=== PATIENT | female | born 1975 | race Caucasian/White ===

== ENCOUNTER 2017-03-03 08:27 | Emergency (ER) | payer BC, MEDICAID ==
[~2017-03-03] VITALS: Wt 72.0 kg
[2017-03-03] MEDS ORDERED: HYDROCODONE/APAP (5/325) TAB PO ONE (09:00)
--- NOTE | 2017-03-03 09:09 | ERD ---
ER Documentation Chief Complaint Date/Time DATE: 03/03/17 TIME: 09:07 Chief Complaint R SIDE ABD PAIN WITH NO N/V. NO DIARRHEA NO DYSURIA . ONSET FOR 2 DAYS. HPI This 41-year-old female presents emergency department today complaining of right -sided abdominal pain for the past 2 days but worse today. 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 States that one day prior to that she had some back pain. States has a history of hernia repair and gallbladder removal. Denies any fevers or chills, dysuria, nausea or vomiting. ROS All systems reviewed and are negative except as per history of present illness. Medications Home Meds Active Scripts Naproxen* (Naprosyn*) 500 Mg Tablet, 500 MG PO BID Y for PAIN AND/OR INFLAMMATION, #30 TAB Prov:ELIECER BELTRAN PA-C 03/03/17 Hydrocodone/Acetaminophen ([place] 5-325 Tablet) 1 Each Tablet, 1 TAB PO Q6H Y for PAIN, #12 TAB Prov:ELIECER BELTRAN PA-C 03/03/17 Cephalexin* (Keflex*) 500 Mg Capsule, 500 MG PO QID for 7 Days, CAP Prov:ELIECER BELTRAN PA-C 03/03/17 Allergies Allergies: Coded Allergies: No Known Allergy (Unverified , 12/22/15) PMhx/Soc Medical and Surgical Hx: pt denies Medical Hx History of Surgery: Yes (CHOLECYSTECTOMY, C SECTION X1) Anesthesia Reaction: Yes (HARD TO WAKE UP) Hx Neurological Disorder: No Hx Respiratory Disorders: No Hx Cardiac Disorders: No Hx Psychiatric Problems: No Hx Miscellaneous Medical Probl: No Hx Alcohol Use: No Hx Substance Use: No Hx Tobacco Use: No Smoking Status: Never smoker Physical Exam Vitals Vital Signs Date Time Temp Pulse Resp B/P Pulse Ox O2 Delivery O2 Flow Rate FiO2 03/03/17 08:31 97.9 62 20 111/70 98 Physical Exam Const: Obese, no acute distress Head: Atraumatic Eyes: Normal Conjunctiva ENT: Normal External Ears, Nose and Mouth. Neck: Full range of motion..~ No meningismus. Resp: Clear to auscultation bilaterally Cardio: Regular rate and rhythm, no murmurs Abd: Soft, right upper quadrant tenderness and mild epigastric tenderness, non distended. Normal bowel sounds. No tenderness McBurney's. Skin: No petechiae or rashes Back: No midline or flank tenderness. No CVA tenderness Ext: No cyanosis, or edema Neur: Awake and alert Psych: Normal Mood and Affect Result Diagram: 03/03/17 0908 03/03/17 0908 Results 24 hrs Laboratory Tests Test 03/03/17 09:05 03/03/17 09:08 Urine Color YELLOW Urine Clarity SLIGHTLY CLOUDY Urine pH 6.0 Urine Specific [place] 1.017 Urine Ketones NEGATIVEmg/dL Urine Nitrite NEGATIVEmg/dL Urine Bilirubin NEGATIVEmg/dL Urine Urobilinogen NEGATIVEmg/dL Urine Leukocyte Esterase 3+Alicja/ul Urine Microscopic RBC 1/HPF Urine Microscopic WBC 7/HPF Urine Squamous Epithelial Cells FEW/HPF Urine Bacteria FEW/HPF Urine Hemoglobin NEGATIVEmg/dL Urine Glucose NEGATIVEmg/dL Urine Total Protein NEGATIVEmg/dl White Blood Count 7.310^3/ul Red Blood Count 3.6510^6/ul Hemoglobin 11.9g/dl Hematocrit 33.4% Mean Corpuscular Volume 91.5fl Mean Corpuscular Hemoglobin 32.6pg Mean Corpuscular Hemoglobin Concent 35.6g/dl Red Cell Distribution Width 11.9% Platelet Count 50855^3/UL Mean Platelet Volume 9.5fl Neutrophils % 49.9% Lymphocytes % 39.8% Monocytes % 6.3% Eosinophils % 2.6% Basophils % 0.7% Nucleated Red Blood Cells % 0.0/100WBC Neutrophils # 3.710^3/ul Lymphocytes # 2.910^3/ul Monocytes # 0.510^3/ul Eosinophils # 0.210^3/ul Basophils # 0.110^3/ul Nucleated Red Blood Cells # 0.010^3/ul Sodium Level 144mmol/L Potassium Level 3.6mmol/L Chloride Level 102mmol/L Carbon Dioxide Level 28mmol/L Anion Gap 18 Blood Urea Nitrogen 11mg/dl Creatinine 0.63mg/dl Glucose Level 92mg/dl Calcium Level 9.0mg/dl Total Bilirubin 0.1mg/dl Direct Bilirubin 0.00mg/dl Indirect Bilirubin 0.1mg/dl Aspartate Amino Transf (AST/SGOT) 55IU/L Alanine Aminotransferase (ALT/SGPT) 140IU/L Alkaline Phosphatase 171IU/L Total Protein 8.2g/dl Albumin 4.3g/dl Globulin 3.90g/dl Albumin/Globulin Ratio 1.10 Lipase 117U/L Current Medications Medications (Trade) Dose Ordered Sig/Luis Route PRN Reason Start Time Stop Time Status Last Admin Dose Admin Acetaminophen/ Hydrocodone Bitart ([place] (5/325)) 1 tab ONCE ONCE PO 03/03/17 09:00 03/03/17 09:01 DC 03/03/17 09:18 DIAGNOSTIC IMAGING REPORT Patient: PATRICE JACOBS : 1975 Age: 41 Sex: F MR #: [id number] DOS: 03/03/17 0000 Ordering MD: ELIECER BELTRAN PA-C Location: [facility] Room/Bed: PROCEDURE: US Abdomen (Right upper quadrant) CLINICAL INDICATION: Abdominal pain. TECHNIQUE: Multiple real-time longitudinal and transverse images were acquired of the patient's right upper quadrant utilizing a curved array transducer. COMPARISON: None. FINDINGS: Liver demonstrates diffuse increase in parenchymal echogenicity. No focal liver mass. Portal vein demonstrates hepatopetal flow. Gallbladder is surgically absent. There is no gallbladder wall thickening or pericholecystic fluid. No intra- or extrahepatic biliary dilation. Pancreas is partially visualized and grossly unremarkable. Right kidney demonstrates no hydronephrosis or nephrolithiasis. No ascites. Proximal aorta and IVC are unremarkable. MEASUREMENTS: Liver: 18.7 cm Common Duct: 0.4 cm Right Kidney: 13.1 cm IMPRESSION: Hepatic steatosis and mild hepatomegaly. Surgical absence of the gallbladder without biliary dilatation. RPTAT: EE .Agus Chisholm MD, MD Date Time Electronically viewed and signed by .Agus Chisholm MD, on 03/03/2017 09:51 .C/ CC: ELIECER BELTRAN PA-C Procedures/MDM This 41-year-old female presents emergency department today complaining of right -sided abdominal pain for the past 2 days and prior to that one day of back pain. Patient is afebrile and otherwise well-appearing and she has had a history of gallbladder removal of her given patient's location of pain I did obtain laboratory work as well as an ultrasound Laboratory workup shows shows no elevated white blood cell count. Her hemoglobin is very mildly decreased. Platelets are slightly elevated. Electrolytes are within normal limits. Glucose within normal limits. Bilirubin is within normal limits. Liver enzymes are mildly elevated. Lipase is within normal limits. UA shows 3+ leukocyte esterase negative nitrites. There 7 microscopic white blood cells. test is negative Abdomen ultrasound limited shows hepatic steatosis and mild hepatomegaly. There is surgical absence of the gallbladder without biliary dilatation. Patient symptoms at this time is consistent with abdominal pain of uncertain etiology however may be related to urinary tract infection as well. Patient does have a history of ventral hernia and she stated that she had some back pain and abdominal pain with moving heavy objects however however given the location of her pain in the right upper quadrant I have low suspicion for incarcerated hernia or bowel obstruction. Low suspicion for acute surgical abdomen. Patient has no tenderness Mauricio's peer Patient was given Marceline here in the emergency department and pain improved. She indicated that she did not need more pain medication and she was sitting up on her phone. At this time the patient is stable for discharge and outpatient management. Patient should follow up with their PCP in the next 1-2 days. They may return to the emergency department sooner for any persistent or worsening of symptoms. Patient understood and agreed with the plan. Departure Diagnosis: Primary Impression: Abdominal pain Abdominal location: right upper quadrant Qualified Code: R10.11 - Right upper quadrant abdominal pain Additional Impression: UTI (urinary tract infection) Urinary tract infection type: site unspecified Hematuria presence: without hematuria Qualified Code: N39.0 - Urinary tract infection without hematuria, site unspecified Condition: ELIECER Cho PA-C Mar 03, 2017 09:09
[2017-03-03 09:30] LABS: BASOPHIL # 0.1 10^3/ul (0.0-0.1); BASOPHILS % 0.7 % (0.0-2.0); EOSINOPHILS # 0.2 10^3/ul (0.0-0.5); EOSINOPHILS % 2.6 % (0.0-7.0); HEMATOCRIT 33.4 % (37.0-47.0); HEMOGLOBIN 11.9 g/dl (12.0-16.0); LYMPHOCYTES # 2.9 10^3/ul (0.8-2.9); LYMPHOCYTES % 39.8 % (15.0-51.0); MEAN CORPUSCULAR HEMOGLOBIN 32.6 pg (29.0-33.0); MEAN CORPUSCULAR HGB CONC 35.6 g/dl (32.0-37.0); MEAN CORPUSCULAR VOLUME 91.5 fl (82.0-101.0); MEAN PLATELET VOLUME 9.5 fl (7.4-10.4); MONOCYTE # 0.5 10^3/ul (0.3-0.9); MONOCYTES % 6.3 % (0.0-11.0); NEUTROPHIL # 3.7 10^3/ul (1.6-7.5); NEUTROPHILS % 49.9 % (39.0-77.0); PLATELET COUNT 424 10^3/UL (140-415); RED BLOOD COUNT 3.65 10^6/ul (4.20-5.40); RED CELL DISTRIBUTION WIDTH 11.9 % (11.5-14.5); WHITE BLOOD COUNT 7.3 10^3/ul (4.8-10.8)
[2017-03-03 09:38] LABS: ADD UMIC YES; UR ASCORBIC ACID NEGATIVE (NEGATIVE); UR BACTERIA FEW /HPF (NONE SEEN); UR BILIRUBIN (Dip) NEGATIVE (NEGATIVE); UR BLOOD (Dip) NEGATIVE (NEGATIVE); UR CLARITY SLIGHTLY CLOUDY (CLEAR); UR COLOR YELLOW (YELLOW); UR GLUCOSE (Dip) NEGATIVE (NEGATIVE); UR KETONES (Dip) NEGATIVE (NEGATIVE); UR LEUKOCYTE ESTERASE (Dip) 3+ Leu/ul (NEGATIVE); UR NITRITE (Dip) NEGATIVE (NEGATIVE); UR RBC 1 /HPF (0-5); UR SPECIFIC GRAVITY (Dip) 1.017 (1.003-1.030); UR SQUAMOUS EPITHELIAL CELL FEW /HPF (FEW); UR TOTAL PROTEIN (Dip) NEGATIVE (NEGATIVE); UR UROBILINOGEN (Dip) NEGATIVE (NEGATIVE)
--- NOTE | 2017-03-03 09:46 | RADRPT ---
PROCEDURE: US Abdomen (Right upper quadrant) CLINICAL INDICATION: Abdominal pain. TECHNIQUE: Multiple real-time longitudinal and transverse images were acquired of the patient's ri ght upper quadrant utilizing a curved array transducer. COMPARISON: None. FINDINGS: Liver demonstrates diffuse increase in parenchymal echogenicity. No focal liver mass. Portal vein demonstrates hepatopetal flow. Gallbladder is surgically absent. There is no gallbladder wall thickening or pericholecystic fluid. No intra- or extrahepatic biliary dilation. Pancreas is partially visualized and grossly unremarkable. Right kidney demonstrates no hydronephrosis or nephrolithiasis. No ascites. Proximal aorta and IVC are unremarkable. MEASUREMENTS: Liver: 18.7 cm Common Duct: 0.4 cm Right Kidney: 13.1 cm IMPRESSION: Hepatic steatosis and mild hepatomegaly. Surgical absence of the gallbladder without biliary dilatation. RPTAT: EE .Agus Chisholm MD, MD Date Time Electronically viewed and signed by .Agus Chisholm MD, on 03/03/2017 09:51 .C/
[2017-03-03 09:51] LABS: ALBUMIN 4.3 g/dl (3.3-4.9); ALBUMIN/GLOBULIN RATIO 1.1; BILIRUBIN,INDIRECT 0.1 mg/dl (0-1.1); BILIRUBIN,TOTAL 0.1 mg/dl (0.2-1.3); CREATININE 0.63 mg/dl (0.44-1.00); POTASSIUM 3.6 mmol/L (3.5-5.1); TOTAL PROTEIN 8.2 g/dl (6.1-8.1)
[2017-03-03] MEDS ORDERED: CEPH-443 PO (10:02)
[2017-03-03] MEDS ORDERED: NAPR-260 PO (10:03)
[2017-03-03] MEDS ORDERED: HYDR-906 PO (10:03)
== END 2017-03-03 10:12 | disposition home or self-care (01) ==
LOC: FTE 08:27
DX: R10.11 Right upper quadrant pain (principal); N39.0 Urinary tract infection, site not specified
CPT/HCPCS: 36415; 76705; 80053; 81001; 83690; 85025; Z7502; Z7610

== ENCOUNTER 2017-03-26 07:51 | Emergency (ER) | payer OTHER ==
[~2017-03-26] VITALS: Wt 80.0 kg
[~2017-03-26 07:51] MED LIST: CEPH-443 PO; HYDR-906 PO; NAPR-260 PO
[2017-03-26] MEDS ORDERED: IBUPROFEN 600 MG TAB PO ONE (08:30)
--- NOTE | 2017-03-26 08:46 | ERD ---
ER Documentation Chief Complaint Date/Time DATE: 03/26/17 TIME: 08:43 Chief Complaint FEVER AND SORE THROAT FOR THE PAST 2 DAYS. GENERAL BODY PAIN. HPI This is a 41-year-old female presenting to emergency department with sore throat , fever and generalized body aches 3 days. Patient states temp of 10 1F at home and has been taking Tylenol. Patient has painful swallowing however no difficulty swallowing or drooling. No cough, shortness breath or difficulty breathing. No chest pain or heart palpitations. No earache or headache. No sick contacts. ROS All systems reviewed and are negative except as per history of present illness. Medications Home Meds Active Scripts Acetaminophen* (Tylenol*) 325 Mg Tablet, 1 TAB PO Q6 Y for PAIN AND OR ELEVATED TEMP, #20 TAB Prov:CELIA CH NP 03/26/17 Ibuprofen* (Motrin*) 400 Mg Tab, 400 MG PO Q6, #30 TAB Prov:CELIA CH NP 03/26/17 Amoxicillin* (Amoxicillin*) 500 Mg Cap, 500 MG PO BID for 10 Days, CAP Prov:CELIA CH NP 03/26/17 Naproxen* (Naprosyn*) 500 Mg Tablet, 500 MG PO BID Y for PAIN AND/OR INFLAMMATION, #30 TAB Prov:ELIECER BELTRAN PA-C 03/03/17 Hydrocodone/Acetaminophen ([place] 5-325 Tablet) 1 Each Tablet, 1 TAB PO Q6H Y for PAIN, #12 TAB Prov:ELIECER BELTRAN PA-C 03/03/17 Cephalexin* (Keflex*) 500 Mg Capsule, 500 MG PO QID for 7 Days, CAP Prov:ELIECER BELTRAN PA-C 03/03/17 Allergies Allergies: Coded Allergies: No Known Allergy (Unverified , 12/22/15) PMhx/Soc Medical and Surgical Hx: pt denies Medical Hx, pt denies Surgical Hx History of Surgery: Yes (CHOLECYSTECTOMY, C SECTION X1) Anesthesia Reaction: Yes (HARD TO WAKE UP) Hx Neurological Disorder: No Hx Respiratory Disorders: No Hx Cardiac Disorders: No Hx Psychiatric Problems: No Hx Miscellaneous Medical Probl: No Hx Alcohol Use: No Hx Substance Use: No Hx Tobacco Use: No Smoking Status: Never smoker Physical Exam Vitals Vital Signs Date Time Temp Pulse Resp B/P Pulse Ox O2 Delivery O2 Flow Rate FiO2 03/26/17 07:54 101.5 85 18 112/63 98 Physical Exam Const: No acute distress, alert Head: Atraumatic Eyes: Normal Conjunctiva ENT: Normal External Ears, Nose and Mouth. erythema and exudate to posterior pharynx. no peritonsillar abscess. non kissing tonsils. Neck: Full range of motion..~ No meningismus. Resp: Clear to auscultation bilaterally. No wheezing, rhonchi or crackles. Cardio: Regular rate and rhythm, no murmurs Abd: Soft, non tender, non distended. Normal bowel sounds Skin: No petechiae or rashes Back: No midline or flank tenderness Ext: No cyanosis, or edema Neur: Awake and alert Psych: Normal Mood and Affect Results 24 hrs Current Medications Medications (Trade) Dose Ordered Sig/Luis Route PRN Reason Start Time Stop Time Status Last Admin Dose Admin Ibuprofen (Motrin) 600 mg ONCE ONCE PO 03/26/17 08:30 03/26/17 08:31 DC 03/26/17 08:20 Procedures/MDM MDM: This is a 41-year-old female presenting to emergency department with sore throat, fever and generalized body aches 3 days. Patient has temperature of 101.5F upon arrival to ED and heart rate 85 bpm. On physical exam there is erythema and exudate posterior pharynx. No peritonsillar abscess. Non-kissing tonsils. Patient given ibuprofen 600 mg while in the ED. Rapid strep swab collected.No signs or symptoms of respiratory distress. Oxygen saturation 98% on room air. Strep swab is positive. Differential diagnosis includes but not limited to strep pharyngitis, pneumonia , viral pharyngitis, influenza, coxsackievirus, herpes simplex virus, [place]- [place] virus, Respiratory syncytial virus and otitis media. Patient likely has viral pharyngitis. Patient is appropriate for outpatient management and will be discharged with prescription for Motrin, Tylenol and Amoxicillin. Instructed patient to follow up with primary care provider in the next 2-3 days for reassessment. Return to ED for any high fever, chest pain, difficulty breathing, shortness breath, wheezing, vomiting, diarrhea, abdominal pain or any new or worsening symptoms. Patient verbalizes understanding. All questions answered at discharge. Departure Diagnosis: Primary Impression: Strep pharyngitis Condition: Stable CELIA CH NP Mar 26, 2017 08:46
[2017-03-26] MEDS ORDERED: AMO500 PO (09:23)
[2017-03-26] MEDS ORDERED: ACET325T33 PO (09:23)
[2017-03-26] MEDS ORDERED: IBUP400T22 PO (09:23)
== END 2017-03-26 09:30 | disposition home or self-care (01) ==
LOC: FTE 07:51
DX: J02.0 Streptococcal pharyngitis (principal)
CPT/HCPCS: 87880; 99283

== ENCOUNTER 2019-03-14 08:39 | Emergency (ER) | payer OTHER ==
[~2019-03-14] VITALS: Ht 162.6 cm; Wt 86.7 kg
[~2019-03-14 08:39] MED LIST changes: +ACET325T33 PO; +AMOX500C2 PO; +HYDR-4011 PO; -HYDR-906 PO; +IBUP-1561 PO; -NAPR-260 PO; +NAPR-985 PO; +OMEP20CA16 PO
[2019-03-14 08:45] VITALS: Ht 162.6 cm; Wt 86.7 kg
--- NOTE | 2019-03-14 09:57 | ERD ---
ER Documentation Chief Complaint Chief Complaint PALPITATIONS X2 DAYS, NO CHEST PAIN/SOB HPI 43-year-old female who presents to the emergency room with approximately 1 week of symptoms of intermittent palpitations. She states that she feels her heart is racing and she feels a knot in the back of her throat. Patient denies any chest pain or pressure, no exertional symptoms. The symptoms come and go lasting several minutes at a time. She denies any lightheadedness, pleuritic discomfort or near syncope. ROS All systems reviewed and are negative except as per history of present illness. Medications Home Meds Active Scripts Omeprazole* (Omeprazole*) 20 Mg Capsule., 20 MG PO DAILY for 30 Days Prov:CHEYENNE BRUNER MD 03/14/19 Discontinued Scripts Acetaminophen* (Tylenol*) 325 Mg Tablet, 1 TAB PO Q6 PRN for PAIN AND OR ELEVATED TEMP, #20 TAB Prov:CELIA CH NP 03/26/17 Ibuprofen* (Motrin*) 400 Mg Tab, 400 MG PO Q6, #30 TAB Prov:CELIA CH NP 03/26/17 Amoxicillin* (Amoxicillin*) 500 Mg Cap, 500 MG PO BID for 10 Days, CAP Prov:CELIA CH NP 03/26/17 Naproxen* (Naprosyn*) 500 Mg Tablet, 500 MG PO BID PRN for PAIN AND/OR INFLAMMATION, #30 TAB Prov:ELIECER BELTRAN PA-C 03/03/17 Hydrocodone/Acetaminophen ([place] 5-325 Tablet) 1 Each Tablet, 1 TAB PO Q6H PRN for PAIN, #12 TAB Prov:ELIECER BELTRAN PA-C 03/03/17 Cephalexin* (Keflex*) 500 Mg Capsule, 500 MG PO QID for 7 Days, CAP Prov:ELIECER BELTRAN PA-C 03/03/17 Allergies Allergies: Coded Allergies: No Known Allergy (Unverified , 03/14/19) PMhx/Soc History of Surgery: Yes (CHOLECYSTECTOMY, C SECTION X1) Anesthesia Reaction: Yes (HARD TO WAKE UP) Hx Neurological Disorder: No Hx Respiratory Disorders: No Hx Cardiac Disorders: No Hx Psychiatric Problems: No Hx Miscellaneous Medical Probl: No Hx Alcohol Use: No Hx Substance Use: No Hx Tobacco Use: No Smoking Status: Never smoker FmHx Family History: No diabetes Physical Exam Vitals Vital Signs Date Temp Pulse Resp B/P (MAP) Pulse Ox O2 O2 Flow FiO2 Time Delivery Rate 03/14/19 97.7 64 17 120/83 97 08:45 (95) Physical Exam General: Well developed, well nourished, no acute distress Head: Normocephalic, atraumatic. Eyes: Pupils equally reactive, EOM intact ENT: Moist mucous membranes Neck: Supple, no lymphadenopathy Respiratory: Lungs clear bilaterally, no distress Cardiovascular: RRR, no murmurs, rubs, or gallops Abdominal: Soft, non-tender, non-distended, no peritoneal signs : Deferred MSK: No edema, no unilateral swelling, 5/5 strength Neurologic: Alert and oriented, moving all extremities, normal speech, no focal weakness, no cerebellar signs Skin: No rash Psych: Normal mood Result Diagram: 03/14/19 0911 03/14/19 0911 Results 24 hrs Laboratory Tests Test 03/14/19 09:11 White Blood Count 7.6 10^3/ul Red Blood Count 3.85 10^6/ul Hemoglobin 12.5 g/dl Hematocrit 36.2 % Mean Corpuscular Volume 94.0 fl Mean Corpuscular Hemoglobin 32.5 pg Mean Corpuscular Hemoglobin Concent 34.5 g/dl Red Cell Distribution Width 12.7 % Platelet Count 320 10^3/UL Mean Platelet Volume 10.4 fl Immature Granulocytes % 0.300 % Neutrophils % 43.4 % Lymphocytes % 47.0 % Monocytes % 7.3 % Eosinophils % 1.5 % Basophils % 0.5 % Nucleated Red Blood Cells % 0.0 /100WBC Immature Granulocytes # 0.020 10^3/ul Neutrophils # 3.3 10^3/ul Lymphocytes # 3.6 10^3/ul Monocytes # 0.6 10^3/ul Eosinophils # 0.1 10^3/ul Basophils # 0.0 10^3/ul Nucleated Red Blood Cells # 0.0 10^3/ul Sodium Level 138 mmol/L Potassium Level 3.5 mmol/L Chloride Level 100 mmol/L Carbon Dioxide Level 30 mmol/L Anion Gap 8 Blood Urea Nitrogen 10 mg/dl Creatinine 0.52 mg/dl Est Glomerular Filtrat Rate mL/min > 60 mL/min Glucose Level 132 mg/dl Calcium Level 9.4 mg/dl Troponin I < 0.012 ng/ml Thyroid Stimulating Hormone (TSH) 2.850 MIU/L Free Thyroxine Index 2.46 ug/ml Thyroxine (T4) 9.4 ug/dl Triiodothyronine (T3) Uptake 26.2 % Procedures/MDM EKG, MONITORS, & DIAGNOSTIC IMAGING: EKG: I reviewed and interpreted a 12-lead EKG. Rhythm: Normal sinus rhythm ST Changes: No contiguous ST segment elevations T waves: No contiguous T wave inversions Impression: No evidence of acute cardiac ischemia Chest x-ray: I reviewed and interpreted a 1 view of the chest Mediastinum: No enlargement Cardiac silhouette: No cardiomegaly Airspace: Clear lung naik bilaterally without evidence of pneumothorax Bones: No evidence of fracture LAB INTERPRETATION: I reviewed the laboratory testing and it shows no evidence of acute process MEDICAL DECISION MAKING: The patient has nonspecific, nonexertional palpitations. She also has a globus sensation. Consider possible reflux, anxiety, nonspecific palpitations. The patient does not have any significant risk factors for early cardiac disease. She has no exertional component. I do not believe this is consistent with acute coronary syndrome. No signs of cardia pulmonary process. Patient will be provided with reassurance. Basic blood work to rule out anemia, elect light disturbance and thyroid dysfunction would be reasonable. Outpatient primary care follow-up is likely necessary. ER COURSE: * Laboratory testing is unrevealing. I believe the patient can be safely discharged home. Consider possible GI etiology. A trial of PPI might be reasonable. CONSULTATION: None DISPOSITION PLAN: The patient does not have an identifiable emergent medical condition that warrants inpatient hospitalization at this time. The patient is deemed safe for discharge with outpatient follow-up. We discussed follow up with the patient's primary care doctor within 24 to 48 hours as needed. We also discussed return to the emergency room for worsening symptoms or worsening condition. Outpatient referral: None required Discharge Medications: Omeprazole Departure Diagnosis: Primary Impression: Palpitations Condition: Stable CHEYENNE BRUNER MD Mar 14, 2019 09:57
[2019-03-14 10:30] VITALS: BP 130/78; PULSE 78; RESP 20
== END 2019-03-14 10:32 | disposition home or self-care (01) ==
LOC: E/R 08:39
DX: R00.2 Palpitations (principal); R40.2142 Coma scale, eyes open, spontaneous, at arrival to emergency department; R40.2362 Coma scale, best motor response, obeys commands, at arrival to emergency department; R40.2252 Coma scale, best verbal response, oriented, at arrival to emergency department
CPT/HCPCS: 36415; 71045; 80048; 84436; 84443; 84479; 84484; 85025; 93005